=== PATIENT | female | born 1995 | race Caucasian/White ===

== ENCOUNTER 2019-03-18 10:57 | Emergency (ER) | payer OTHER ==
[2019-03-18] MEDS ORDERED: Lidocaine 1% 20 ML MDV INJECT ONE (11:32)
[2019-03-18] MEDS ORDERED: Lidocaine 1% 10 ML MDV INJECT ONE (11:35)
[2019-03-18] MEDS ORDERED: Lidocaine 1% 10 ML MDV ONE (11:35)
--- NOTE | 2019-03-18 12:15 | EDM.PDOC ---
ED HPI GENERAL MEDICAL PROBLEM - General Chief Complaint: Skin Complaint Stated Complaint: ABCESS Time Seen by Provider: 03/18/19 12:15 Source of Information: Reports: Patient History Limitations: Reports: No Limitations - History of Present Illness INITIAL COMMENTS - FREE TEXT/NARRATIVE: Patient seen by Dr. Valenzuela. Note written for discharge instructions for patient. Please see Dr. Valenzuela's dictation for complete H&P. Left Buttock Pain Score (Numeric/FACES): 10 - Related Data Allergies Allergy/AdvReac Type Severity Reaction Status Date / Time No Known Allergies Allergy Verified 03/18/19 11:18 Home Meds: Home Meds Cephalexin [Keflex] 500 mg PO QID 03/18/19 [History] Ibuprofen 400 mg PO Q6H PRN 03/18/19 [History] Social & Family History - Tobacco Use Smoking Status *Q: Never Smoker Second Hand Smoke Exposure: No - Caffeine Use Caffeine Use: Reports: None - Recreational Drug Use Recreational Drug Use: No ED ROS GENERAL - Review of Systems Review Of Systems: ROS reveals no pertinent complaints other than HPI. ED EXAM, SKIN/RASH Exam: Not Obtained Course - Vital Signs Last Recorded V/S: Last Vital Signs Temp 98.7 F 03/18/19 11:05 Pulse 92 03/18/19 11:05 Resp 16 03/18/19 11:05 BP 112/70 03/18/19 11:05 Pulse Ox 100 03/18/19 11:05 - Orders/Labs/Meds Meds: Medications Discontinued Medications Generic Name Dose Route Start Last Admin Trade Name Freq PRN Reason Stop Dose Admin Lidocaine HCl 20 ml 03/18/19 11:32 03/18/19 11:40 Xylocaine 1% INJECT 03/18/19 11:33 Not Given ONETIME ONE Lidocaine HCl 10 ml 03/18/19 11:35 03/18/19 11:40 Xylocaine 1% INJECT 03/18/19 11:36 10 ml ONETIME ONE Administration Lidocaine HCl Confirm 03/18/19 11:35 03/18/19 11:40 Xylocaine 1% Administered 03/18/19 11:36 Not Given Dose 10 ml .ROUTE .STK-MED ONE Departure - Departure Time of Disposition: 12:12 Disposition: Home, Self-Care 01 Condition: Good Clinical Impression: Wound abscess, Abscess - Discharge Information *PRESCRIPTION DRUG MONITORING PROGRAM REVIEWED*: No *COPY OF PRESCRIPTION DRUG MONITORING REPORT IN PATIENT WILLEM: No Referrals: PCP,Not In Area [Primary Care Provider] - Hayden Coronado MD [Physician] - Forms: ED Department Discharge Additional Instructions: Instructions per Dr. Valenzuela. Continue with cephalexin as prescribed. Follow-up with Dr. Coronado Saturday. Call [facility] to Make appointment, . Dressing changes daily, after am showering. Please return to the ER should your symptoms change or worsen.
--- NOTE | 2019-03-19 07:54 | CONS ---
CONSULTING PHYSICIAN: Michelle Valenzuela MD DATE OF CONSULTATION: 03/18/2019 CHIEF COMPLAINT: Left gluteal pain. HISTORY OF PRESENT ILLNESS: The patient is a very pleasant 23-year-old female who noted to have a swelling of her left upper gluteal area just to the left of the midline. She was started on p.o. medications, but this is now increased in intensity. She denies any fevers or chills and she says no prior history of having this before. 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 She does understand Samoan. I did this very slowly. She denies ever having any associated ones. PAST MEDICAL HISTORY: None. ALLERGIES: None. CURRENT MEDICATIONS: Keflex p.o. PAST SURGICAL HISTORY: Negative. She denies that she could be . SOCIAL HISTORY: Smoking negative. Alcohol negative. REVIEW OF SYSTEMS: She denies fevers or chills. She denies abdominal pain or tenderness and she states she is otherwise feeling well. PHYSICAL EXAMINATION: LUNGS: Clear. HEART: Rhythm is regular. GENERAL: She is lying on her abdomen and just to the left of the midline at the upper crease of her gluteus is an area of about 3-1/2 cm of induration. This actually "pointing." Interestingly enough, I was looking up and down to see if there is any signs of a pilonidal communication and there is not. The area was marked. IMPRESSION AND PLAN: She indeed has an abscess that is probably ready to be drained and this could even be a pilonidal abscess, but I cannot see any signs of that at this point. Today, what I would like to do is to just do a local I and D. Unfortunately, she had already eaten breakfast, so we will just do this here in the room. I explained the risks to include bleeding, infection, heart attack, , that she might need some additional procedures and she totally understands. We will go ahead and do this acute problem right now. Sitting next to her is one of the staff, who is also a nurse, so this will help us immensely. KAITLYNN /[id number]
--- NOTE | 2019-03-19 07:55 | OR ---
DATE OF OPERATION: 03/18/2019 SURGEON: Michelle Valenzuela MD This is done in the ED. PREOPERATIVE DIAGNOSIS: Left upper gluteal abscess. POSTOPERATIVE DIAGNOSIS: Left upper gluteal abscess. OPERATION PERFORMED: Incision and drainage. ANESTHESIA: 1% lidocaine. A total of 60 mL. ESTIMATED BLOOD LOSS: Less than 2 mL. BRIEF HISTORY: This is a very pleasant female, who has a left upper gluteal abscess. I had the opportunity to discuss the risks, benefits, or drainage. Of note, on my exam, I could not see any signs of pilonidal disease. The area was marked. She was resting on her abdomen. DESCRIPTION OF PROCEDURE: The area was prepped and draped in the usual fashion. A 1% lidocaine was instilled into the tissues. Then, I was able to do a cross fashion. Immediately, purulent material that was came out that was moderately foul smelling. I was able to take aerobic and anaerobic cultures. Once I drained, I was able to put my digit into the cavity and cleared there were no signs of loculations. The cavity size was probably about 4 cm in nature. There was no tracking that I could appreciate. I then irrigated it out with about 150 mL of normal saline and simply packed it with iodoform. INSTRUCTIONS TO THE PATIENT: 1. Shower in the morning to remove the packing. 2. Repack it with the iodoform that I gave her and we just put about a probably 6 inches to the base. She has a nurse at the bedside. 3. Follow up again with Dr. Espinoza in the Occupational Health on Saturday, sooner if there are any problems. 4. Her prognosis is good. 5. She tolerated the procedure well. MMODAL /[id number]
== END 2019-03-18 12:20 | disposition home or self-care (01) ==
LOC: JD.ED 10:57
DX: L02.31 Cutaneous abscess of buttock (principal)
CPT/HCPCS: 10061; 87075; 87205; 99283; J2001